=== PATIENT | female | born 1960 | race Caucasian/White ===

== ENCOUNTER 2016-06-24 12:08 | Emergency (ER) | payer OTHER ==
[~2016-06-24] VITALS: Ht 157.5 cm; Wt 51.5 kg
[2016-06-24 12:10] VITALS: TEMP 36.4; Ht 157.5 cm; Wt 51.5 kg
[2016-06-24] MEDS ORDERED: ONDA8TAB62 SL (12:42)
[2016-06-24] MEDS ORDERED: ACET-1256 PO (12:43)
[2016-06-24] MEDS ORDERED: SODIUM CHLORIDE 0.9% 1000ML 1,000 ML IV STA (13:29)
--- NOTE | 2016-06-24 13:29 | EMERGENCY ROOM VISIT NOTE ---
History Report prepared by Christophe: Jax De Jesus Under the Supervision of: Dr. Sameer Her M.D. First contact with patient: 13:21 Chief Complaint: VOMITING Stated Complaint: VOMITING, ABD PAIN Nursing Triage Summary: had been having diarrhea several days with abd pain. History of Present Illness The patient is a 55 year old female who presents to the Emergency Room with complaints of episodes of vomiting that stared a week ago. She also complains of intermittent cramping abdominal pain that initially started around her belly button and has progressively moved downwards. She denies any vomiting, chest pain, shortness of breath, urinary symptoms, or swelling to her legs. The patient currently feels okay. She went to her doctor 2 days ago. She has no history of diverticulitis or IBS. Source of History: patient Onset: A week ago Position: other (global - vomiting) Timing: other (episodes) Associated Symptoms: + abdominal pain, No SOB, No chest pain, No urinary symptoms Note: Associated symptoms: Denies swelling to legs. Review of Systems See HPI for pertinent positives & negatives. A total of 10 systems reviewed and were otherwise negative. Family History No pertinent family history Social History Smoking Status: Current Every Day Smoker Marital Status: Housing Status: lives with family Occupation Status: unemployed Current/Historical Medications Scheduled Ciprofloxacin Hcl (Cipro), 500 MG PO BID Metronidazole (Flagyl), 500 MG PO TID Scheduled PRN Acetaminophen (Tylenol), 1,000 MG PO Q4 PRN for Headache or Pain Ondansetron Odt (Zofran Odt), 8 MG SL Q4 PRN for Nausea Oxycodone Ir (Roxicodone Ir), 1-2 TAB PO Q4H PRN for Pain Promethazine Hcl (Phenergan), 25 MG PO Q4H PRN for Nausea Allergies Coded Allergies: [place] (Unverified Allergy, Intermediate, HIVES, 06/24/16) [place] Flavor (Unverified Allergy, Intermediate, HIVES, 06/24/16) Physical Exam Vital Signs Date Time Temp Pulse Resp B/P Pulse Ox O2 Delivery O2 Flow Rate FiO2 06/24/16 16:15 58 16 132/61 96 06/24/16 15:45 65 18 95 06/24/16 13:53 58 18 118/64 98 Room Air 06/24/16 12:10 36.4 74 20 124/72 97 Room Air Physical Exam GENERAL: Patient is uncomfortable appearing and in mild distress. HEENT: No acute trauma, normocephalic atraumatic, mucous membranes dry, no nasal congestion, no scleral icterus. NECK: No stridor, no adenopathy, no meningismus, trachea is midline. LUNGS: No dyspnea. Clear to auscultation and equal bilaterally. No wheeze, no rhonchi. HEART: Regular rate and rhythm. No murmurs, rubs, gallops appreciated. ABDOMEN: Soft, bowel sounds positive, no masses appreciated, no peritonitis. Bilateral lower abdominal mild tenderness. BACK: No midline tenderness, no CVA tenderness EXTREMITIES: Normal motion all extremities, no cyanosis, no edema. NEUROLOGIC: Alert and oriented, no acute motor or sensory deficits, no focal weakness, cranial nerves grossly intact. SKIN: No rash, no jaundice, no diaphoresis. Medical Decision & Procedures ER Provider Diagnostic Interpretation: CT results are stated below per my interpretation and the radiologist's interpretation. ABDOMEN AND PELVIS CT WITH IV CONTRAST CT DOSE: 248.89 mGy.cm HISTORY: Pain lower abdominal pain x 1 wk, diarrhea, elevated wbc TECHNIQUE: Multiaxial CT images of the abdomen and pelvis were performed following the use of intravenous contrast. COMPARISON STUDY: None. FINDINGS: Lung bases are clear. Liver spleen pancreas are unremarkable. Kidneys demonstrate several small sub-5 mm cyst. There is no evidence for renal hydronephrosis. Bowel pattern suggests mild nonobstructive ileus. The appendix is normal. Colon is remarkable for what appears be a slight degree of generalized wall edema as well as a trace amount of pericolonic infiltrative change. This appearance consistent with that of a nonspecific colitis. There is no evidence for abscess collection or obstruction. There is no significant free fluid within the pelvic cul-de-sac. Uterus is anteflexed. IMPRESSION: 1. Mild nonspecific colitis. 2. No evidence for abscess collection or obstruction. 3. Normal appendix. 4. Mild nonobstructive reactive small bowel ileus. Electronically signed by: Jamal Garcia M.D. 06/24/2016 2:58 PM Dictated Date/Time: 06/24/2016 2:53 PM Laboratory Results 06/24/16 13:45 Red Blood Count 5.17, Mean Corpuscular Volume 81.6, Mean Corpuscular Hemoglobin 26.5, Mean Corpuscular Hemoglobin Concent 32.5, Mean Platelet Volume 10.9, Neutrophils (%) (Auto) 77.4, Lymphocytes (%) (Auto) 14.2, Monocytes (%) (Auto) 5.6, Eosinophils (%) (Auto) 2.2, Basophils (%) (Auto) 0.4, Neutrophils # (Auto) 12.85, Lymphocytes # (Auto) 2.35, Monocytes # (Auto) 0.93, Eosinophils # (Auto) 0.36, Basophils # (Auto) 0.07 06/24/16 13:45 Test 06/24/16 13:45 06/24/16 13:50 White Blood Count 16.60 K/uL (4.8-10.8) Red Blood Count 5.17 M/uL (4.2-5.4) Hemoglobin 13.7 g/dL (12.0-16.0) Hematocrit 42.2 % (37-47) Mean Corpuscular Volume 81.6 fL (80-100) Mean Corpuscular Hemoglobin 26.5 pg (25-34) Mean Corpuscular Hemoglobin Concent 32.5 g/dl (32-36) Platelet Count 260 K/uL (130-400) Mean Platelet Volume 10.9 fL (7.4-10.4) Neutrophils (%) (Auto) 77.4 % Lymphocytes (%) (Auto) 14.2 % Monocytes (%) (Auto) 5.6 % Eosinophils (%) (Auto) 2.2 % Basophils (%) (Auto) 0.4 % Neutrophils # (Auto) 12.85 K/uL (1.4-6.5) Lymphocytes # (Auto) 2.35 K/uL (1.2-3.4) Monocytes # (Auto) 0.93 K/uL (0.11-0.59) Eosinophils # (Auto) 0.36 K/uL (0-0.5) Basophils # (Auto) 0.07 K/uL (0-0.2) RDW Standard Deviation 48.2 fL (36.4-46.3) RDW Coefficient of Variation 16.2 % (11.5-14.5) Immature Granulocyte % (Auto) 0.2 % Immature Granulocyte # (Auto) 0.04 K/uL (0.00-0.02) Anion Gap 13.0 mmol/L (3-11) Est Creatinine Clear Calc Drug Dose 50.9 ml/min Estimated GFR () 74.0 Estimated GFR (Non- 63.8 BUN/Creatinine Ratio 13.2 (10-20) Calcium Level 9.4 mg/dl (8.5-10.1) Total Bilirubin 0.4 mg/dl (0.2-1) Aspartate Amino Transf (AST/SGOT) 15 U/L (15-37) Alanine Aminotransferase (ALT/SGPT) 14 U/L (12-78) Alkaline Phosphatase 59 U/L (45-117) Total Protein 7.7 gm/dl (6.4-8.2) Albumin 4.0 gm/dl (3.4-5.0) Globulin 3.7 gm/dl (2.5-4.0) Albumin/Globulin Ratio 1.1 (0.9-2) Lipase 123 U/L (73-393) Urine Color YELLOW Urine Appearance CLEAR (CLEAR) Urine pH 5.5 (4.5-7.5) Urine Specific [place] 1.014 (1.000-1.030) Urine Protein NEG (NEG) Urine Glucose (UA) NEG (NEG) Urine Ketones NEG (NEG) Urine Occult Blood NEG (NEG) Urine Nitrite NEG (NEG) Urine Bilirubin NEG (NEG) Urine Urobilinogen NEG (NEG) Urine Leukocyte Esterase NEG (NEG) Laboratory results as reviewed by me. Medications Administered Medications (Trade) Dose Ordered Sig/Irish Route Start Time Stop Time Status Last Admin Dose Admin Sodium Chloride (Nss 1000ml) 1,000 ml @ 999 mls/hr Q1H1M STAT IV 06/24/16 13:29 06/24/16 14:29 DC 06/24/16 13:29 999 MLS/HR Ciprofloxacin (Cipro Tab) 500 mg NOW STAT PO 06/24/16 15:28 06/24/16 15:30 DC 06/24/16 15:28 500 MG Metronidazole (Flagyl Tab) 500 mg NOW STAT PO 06/24/16 15:28 06/24/16 15:30 DC 06/24/16 15:28 500 MG ED Course 1325: The patient was evaluated in room B8. A complete history and physical exam was performed. 1329: Ordered NSS 1000 ml @ 999 mls/hr IV. 1405: I reevaluated the patient and she feels okay and agrees to a CT scan. 1516: I discussed the patient with Dr. Sterling William gastroenterology. 1527: I reevaluated the patient and she feels good and would like to try antibiotics. The patient verbally expressed understanding and agreement of the treatment plan. The patient will be discharged. 1528: Ordered Flagyl Tab 500 mg PO, Cipro Tab 500 mg PO. Medical Decision Differential: Appendicitis, Diverticulitis, PUD/Gastritis, Biliary Pathology, UTI, Pyelonephritis, Renal Colic, Bowel Obstruction, amongst other pathologies entertained.. 55 yr old female arrives with complaint of nause,a ovmiting and diarrhe for the last week and developing lower abdominal pains which come and go. Quite comfortable here and in no distress. Mildly dehydrated consistent with several pound weight loss over this week. With elevated WBC and prolonged symptoms seems prudent to do CT. Revealed Colitis with some ileus. Discussed pros/cons of abx. She denies any recent abx. She wishes to start abx given prolonged symptoms and I feel this is reasonable. She will follow up with PCP tomorrow. Discussed symptoms requiring immediate RTED. Stressed GI follow up as well. Consults Time Called: 1514 Consulting Physician: Dr. Sterling William gastroenterology Returned Call: 1516 I discussed the patient with Dr. Sterling William gastroenterology. Impression Primary Impression: Colitis Scribe Attestation The scribe's documentation has been prepared under my direction and personally reviewed by me in its entirety. I confirm that the note above accurately reflects all work, treatment, procedures, and medical decision making performed by me. Departure Information Dispostion Home / Self-Care Prescriptions Ciprofloxacin Hcl (CIPRO) 500 Mg Tab 500 MG PO BID, #20 TAB Prov: Sameer Her M.D. 06/24/16 Metronidazole (Flagyl) 500 Mg Tab 500 MG PO TID, #30 TAB Prov: Sameer Her M.D. 06/24/16 Promethazine Hcl (Phenergan) 25 Mg Tab 25 MG PO Q4H Y for Nausea, #20 TAB Prov: Sameer Her M.D. 06/24/16 Oxycodone Ir (Roxicodone Ir) 5 Mg Tab 1-2 TAB PO Q4H Y for Pain, #12 TAB Prov: Sameer Her M.D. 06/24/16 Referrals Jamal Terrell M.D. (PCP) Patient Instructions My [facility] Additional Instructions You were found to have inflammation of your large bowel known as colitis. In rare cases this could be due to a serious bacterial infection that may worsen, thus return immediately if fevers, increased vomiting, increased pain, blood in stool or other concerns. Call your PCP tomorrow to set up follow up. You have received a narcotic pain medication prescription. These medications may cause drowsiness and should not be used with other sedative medications. Do not drive, drink alcohol, perform dangerous activities, nor make important decisions after taking these medications. [facility] use or inappropriate use may lead to addiction.
[2016-06-24 13:56] LABS: BASO % 0.4 %; BASO ABS # 0.07 K/uL (0-0.2); COMPLETE YES; EOS % 2.2 %; HEMATOCRIT 42.2 % (37-47); IG% 0.2 %; LYMPH % 14.2 %; LYMPH ABS # 2.35 K/uL (1.2-3.4); MEAN CELL VOLUME 81.6 fL (80-100); MEAN CORPUSCULAR HEMOGLOBIN 26.5 pg (25-34); MEAN CORPUSCULAR HGB CONC 32.5 g/dl (32-36); MEAN PLATELET VOLUME 10.9 fL (7.4-10.4); MONO % 5.6 %; NEUT % 77.4 %; PLATELET COUNT 260 K/uL (130-400); RED BLOOD COUNT 5.17 M/uL (4.2-5.4)
[2016-06-24 14:08] LABS: URINE APPEARANCE CLEAR (CLEAR); URINE BILIRUBIN NEG (NEG); URINE COLOR YELLOW; URINE NITRITE NEG (NEG); URINE PH 5.5 (4.5-7.5); URINE SPECIFIC GRAVITY 1.014 (1.000-1.030); UROBILINOGEN NEG (NEG); ZZUR CULT IF INDIC CLEAN CATCH NO
[2016-06-24 14:11] LABS: MANUAL MICROSCOPIC REQUIRED? NO; REVIEW REQ? NO
[2016-06-24 14:12] LABS: BUN/CREATININE RATIO 13.2 (10-20); CALCIUM 9.4 mg/dl (8.5-10.1); POTASSIUM 4.1 mmol/L (3.5-5.1)
[2016-06-24 14:15] LABS: ALB/GLOB RATIO 1.1 (0.9-2)
[2016-06-24] MEDS ORDERED: OPTIRAY 320 IV PRN (14:15)
--- NOTE | 2016-06-24 15:00 | DIAGNOSTIC IMAGING REPORT ---
ABDOMEN AND PELVIS CT WITH IV CONTRAST CT DOSE: 248.89 mGy.cm HISTORY: Pain lower abdominal pain x 1 wk, diarrhea, elevated wbc TECHNIQUE: Multiaxial CT images of the abdomen and pelvis were performed following the use of intravenous contrast. COMPARISON STUDY: None. FINDINGS: Lung bases are clear. Liver spleen pancreas are unremarkable. Kidneys demonstrate several small sub-5 mm cyst. There is no evidence for renal hydronephrosis. Bowel pattern suggests mild nonobstructive ileus. The appendix is normal. Colon is remarkable for what appears be a slight degree of generalized wall edema as well as a trace amount of pericolonic infiltrative change. This appearance consistent with that of a nonspecific colitis. There is no evidence for abscess collection or obstruction. There is no significant free fluid within the pelvic cul-de-sac. Uterus is anteflexed. IMPRESSION: 1. Mild nonspecific colitis. 2. No evidence for abscess collection or obstruction. 3. Normal appendix. 4. Mild nonobstructive reactive small bowel ileus. Electronically signed by: Jamal Garcia M.D. 06/24/2016 2:58 PM Dictated Date/Time: 06/24/2016 2:53 PM
[2016-06-24] MEDS ORDERED: CIPROFLOXACIN 500 MG TAB PO STA (15:28)
[2016-06-24] MEDS ORDERED: METRONIDAZOLE 250 MG TAB PO STA (15:28)
[2016-06-24] MEDS ORDERED: CIPR-255 PO (15:31)
[2016-06-24] MEDS ORDERED: OXYC1TAB3 PO (15:31)
[2016-06-24] MEDS ORDERED: METR-163 PO (15:31)
[2016-06-24] MEDS ORDERED: PROM25TA9 PO (15:31)
[2016-06-24 16:15] VITALS: BP 132/61; PULSE 58; O2SAT 96
== END 2016-06-24 16:00 | disposition home or self-care (01) ==
LOC: C.EDB 12:08
DX: K52.9 Noninfective gastroenteritis and colitis, unspecified (principal); F17.200 Nicotine dependence, unspecified, uncomplicated

== ENCOUNTER 2016-10-04 21:09 | Inpatient (IN) | payer OTHER ==
[~2016-10-04] VITALS: Ht 160 cm; Wt 55.4 kg
[~2016-10-04 21:09] MED LIST: ACET-1256 PO; CIPR-255 PO; METR-163 PO; ONDA8TAB62 SL; OXYC1TAB3 PO; PROM25TA9 PO
[2016-10-04 21:30] LABS: MEAN CELL VOLUME 87.1 fL (80-100); MEAN CORPUSCULAR HEMOGLOBIN 28.1 pg (25-34); MEAN CORPUSCULAR HGB CONC 32.3 g/dl (32-36); PLATELET COUNT 298 K/uL (130-400); RED BLOOD COUNT 5.05 M/uL (4.2-5.4); WHITE BLOOD COUNT 15.46 K/uL (4.8-10.8)
[2016-10-04] MEDS ORDERED: DiphenhydrAMINE HCL 50 MG/ML VIAL IV STA (21:46)
[2016-10-04] MEDS: PROCHLORPERAZINE 5 MG/ML 2 ML VIAL IV STA ×2 (21:46→22:02)
[2016-10-04] MEDS ORDERED: HYDROmorphone INJ 1 MG/ML SYR IV STA (21:46)
[2016-10-04] MEDS ORDERED: BNT10 PO (21:47)
[2016-10-04 21:51] LABS: CREATININE 0.99 mg/dl (0.60-1.20); POTASSIUM 3.5 mmol/L (3.5-5.1)
[2016-10-04] MEDS ORDERED: SODIUM CHLORIDE 0.9% 1000ML 1,000 ML IV ONE (22:00)
[2016-10-04 22:02] LABS: CALCIUM 9.1 mg/dl (8.5-10.1)
[2016-10-04 22:11] LABS: BASO % 1.5 %; BASO ABS # 0.23 K/uL (0-0.2); COMPLETE YES; EOS % 1.6 %; IG% 0.3 %; LYMPH % 33.8 %; LYMPH ABS # 5.23 K/uL (1.2-3.4); NEUT % 55.8 %
[2016-10-04] MEDS ORDERED: OPTIRAY 320 IV PRN (22:15)
--- NOTE | 2016-10-04 22:25 | DIAGNOSTIC IMAGING REPORT ---
ABDOMEN AND PELVIS CT WITH IV CONTRAST CT DOSE: 243.48 mGy.cm HISTORY: Generalized abdominal pain. Vomiting. TECHNIQUE: Multiaxial CT images of the abdomen and pelvis were performed following the use of intravenous contrast. COMPARISON STUDY: Abdomen and pelvis CT 06/24/2016. FINDINGS: The lung bases are clear. No pneumoperitoneum. No pneumatosis. The liver, gallbladder, spleen, adrenal glands, and pancreas are unremarkable. No retroperitoneal lymphadenopathy. A few subcentimeter hypodense lesions within the left kidney measuring up to 7 mm. These are too small to characterize. Normal right kidney. No hydronephrosis. The bladder, uterus, bilateral adnexa are unremarkable. Trace ascites. Mildly distended and fluid-filled loops of small bowel within the deep pelvis. These measure up to 2.8 cm in diameter. High-grade transition point within the deep pelvis best seen on image 273. There is twisting of the mesentery at this location. Therefore this raises the possibility of an internal hernia with a closed loop obstruction. Normal appendix. IMPRESSION: Mildly distended fluid-filled loops of small bowel within the deep pelvis consistent with a small bowel obstruction. There is a high-grade transition point within the deep pelvis with twisting of the mesentery at this location. Therefore, this raises the possibility of an internal hernia with a closed loop obstruction. Surgical consultation is recommended. Electronically signed by: Jose Manuel Landon M.D. 10/04/2016 10:24 PM Dictated Date/Time: 10/04/2016 10:16 PM
[2016-10-04] MEDS ORDERED: HYDROmorphone INJ 0.5 MG/0.5 ML SYR IV STA (23:08)
--- NOTE | 2016-10-04 23:21 | EMERGENCY ROOM VISIT NOTE ---
History First contact with patient: 21:41 Chief Complaint: ABDOMINAL PAIN Stated Complaint: AB PAIN Nursing Triage Summary: [facility] with c[facility]o mid abdominal pain [facility] History of Colitis. Pain 10/10 received 100 mcg Fentanyl and 4 mg Zofran enroute with EMS History of Present Illness The patient is a 56 year old female who presents to the Emergency Room with complaints of severe abdominal pain that began over the past 8 or 9 hours. The patient states that she had a hot dog and the hands and which around lunchtime, and shortly thereafter began having some mild abdominal discomfort. Her pain has worsened over the past several hours, and she now rates it a sharp stabbing 02/12. The patient has a history of colitis and does arrive via ambulance. She has been provided 100 g fentanyl and 4 mg Zofran. She continues to be in exquisite pain. She is nauseated with vomiting. She does not report diarrhea or constipation. No chest pain, chest tightness, or shortness of breath. She does not report previous abdominal surgery. She has not had fever or chills. Review of Systems More than 10 systems were reviewed and otherwise negative with the exception of history of present illness. Past Medical/Surgical History History of colitis Family History No pertinent family history Social History Smoking Status: Current Every Day Smoker Marital Status: Housing Status: lives with family Occupation Status: unemployed Current/Historical Medications Scheduled Dicyclomine HCl (Dicyclomine HCl), 10 MG PO QID Allergies Coded Allergies: [place] (Unverified Allergy, Intermediate, HIVES, 10/04/16) [place] Flavor (Unverified Allergy, Intermediate, HIVES, 10/04/16) Alcohol (Unverified Allergy, Unknown, UNKNOWN, 10/04/16) Latex (Unverified Allergy, Unknown, UNKNOWN, 10/04/16) Physical Exam Vital Signs Date Time Temp Pulse Resp B/P (MAP) Pulse Ox O2 Delivery O2 Flow Rate FiO2 10/05/16 00:10 64 18 151/64 100 10/04/16 23:14 58 16 146/70 96 Room Air 10/04/16 22:02 49 16 127/58 99 Nasal Cannula 3.0 10/04/16 21:16 36.6 55 24 135/63 94 Room Air Physical Exam VITALS: Vitals are noted on the nurse's note and reviewed by myself. Vital signs stable. GENERAL: Well-developed, well-nourished, white female who appears in moderate to severe discomfort secondary to her stated complaint. She is splinting her abdomen with her right hand and rocking back and forth in her emergency department bed. The patient is tearful but otherwise cooperative with the examination. HEAD: Normocephalic atraumatic. HEART: Regular rate and rhythm without murmurs gallops or rubs. LUNGS: Clear to auscultation bilaterally without wheezes, rales or rhonchi. No retractions or accessory muscle use. ABDOMEN: Positive normal bowel sounds x 4. Soft with generalized tenderness on examination. No distinct point tenderness. The patient does mildly guard over the left side abdomen. No CVA tenderness. MUSCULOSKELETAL: No muscle atrophy, erythema, or edema noted. Full range of motion without joint tenderness in all extremities Medical Decision & Procedures ER Provider Diagnostic Interpretation: ABDOMEN AND PELVIS CT WITH IV CONTRAST CT DOSE: 243.48 mGy.cm HISTORY: Generalized abdominal pain. Vomiting. TECHNIQUE: Multiaxial CT images of the abdomen and pelvis were performed following the use of intravenous contrast. COMPARISON STUDY: Abdomen and pelvis CT 06/24/2016. FINDINGS: The lung bases are clear. No pneumoperitoneum. No pneumatosis. The liver, gallbladder, spleen, adrenal glands, and pancreas are unremarkable. No retroperitoneal lymphadenopathy. A few subcentimeter hypodense lesions within the left kidney measuring up to 7 mm. These are too small to characterize. Normal right kidney. No hydronephrosis. The bladder, uterus, bilateral adnexa are unremarkable. Trace ascites. Mildly distended and fluid-filled loops of small bowel within the deep pelvis. These measure up to 2.8 cm in diameter. High-grade transition point within the deep pelvis best seen on image 273. There is twisting of the mesentery at this location. Therefore this raises the possibility of an internal hernia with a closed loop obstruction. Normal appendix. IMPRESSION: Mildly distended fluid-filled loops of small bowel within the deep pelvis consistent with a small bowel obstruction. There is a high-grade transition point within the deep pelvis with twisting of the mesentery at this location. Therefore, this raises the possibility of an internal hernia with a closed loop obstruction. Surgical consultation is recommended. Laboratory Results 10/04/16 20:45 Red Blood Count 5.05, Mean Corpuscular Volume 87.1, Mean Corpuscular Hemoglobin 28.1, Mean Corpuscular Hemoglobin Concent 32.3, Mean Platelet Volume 12.0, Neutrophils (%) (Auto) 55.8, Lymphocytes (%) (Auto) 33.8, Monocytes (%) (Auto) 7.0, Eosinophils (%) (Auto) 1.6, Basophils (%) (Auto) 1.5, Neutrophils # (Auto) 8.62, Lymphocytes # (Auto) 5.23, Monocytes # (Auto) 1.08, Eosinophils # (Auto) 0.25, Basophils # (Auto) 0.23 10/04/16 20:45 Test 10/04/16 20:45 10/04/16 23:05 White Blood Count 15.46 K/uL (4.8-10.8) Red Blood Count 5.05 M/uL (4.2-5.4) Hemoglobin 14.2 g/dL (12.0-16.0) Hematocrit 44.0 % (37-47) Mean Corpuscular Volume 87.1 fL (80-100) Mean Corpuscular Hemoglobin 28.1 pg (25-34) Mean Corpuscular Hemoglobin Concent 32.3 g/dl (32-36) Platelet Count 298 K/uL (130-400) Mean Platelet Volume 12.0 fL (7.4-10.4) Neutrophils (%) (Auto) 55.8 % Lymphocytes (%) (Auto) 33.8 % Monocytes (%) (Auto) 7.0 % Eosinophils (%) (Auto) 1.6 % Basophils (%) (Auto) 1.5 % Neutrophils # (Auto) 8.62 K/uL (1.4-6.5) Lymphocytes # (Auto) 5.23 K/uL (1.2-3.4) Monocytes # (Auto) 1.08 K/uL (0.11-0.59) Eosinophils # (Auto) 0.25 K/uL (0-0.5) Basophils # (Auto) 0.23 K/uL (0-0.2) RDW Standard Deviation 50.6 fL (36.4-46.3) RDW Coefficient of Variation 15.9 % (11.5-14.5) Immature Granulocyte % (Auto) 0.3 % Immature Granulocyte # (Auto) 0.05 K/uL (0.00-0.02) Erythrocyte Sedimentation Rate 10 mm/hr (0-21) Anion Gap 7.0 mmol/L (3-11) Est Creatinine Clear Calc Drug Dose 52.9 ml/min Estimated GFR () 74.4 Estimated GFR (Non- 64.2 BUN/Creatinine Ratio 16.0 (10-20) Calcium Level 9.1 mg/dl (8.5-10.1) Total Bilirubin 0.3 mg/dl (0.2-1) Aspartate Amino Transf (AST/SGOT) 24 U/L (15-37) Alanine Aminotransferase (ALT/SGPT) 25 U/L (12-78) Alkaline Phosphatase 70 U/L (45-117) C-Reactive Protein < 0.29 mg/dl (0-0.29) Total Protein 7.2 gm/dl (6.4-8.2) Albumin 3.6 gm/dl (3.4-5.0) Globulin 3.6 gm/dl (2.5-4.0) Albumin/Globulin Ratio 1.0 (0.9-2) Lipase 164 U/L (73-393) Urine Color YELLOW Urine Appearance CLEAR (CLEAR) Urine pH 7.0 (4.5-7.5) Urine Specific [place] > 1.045 (1.000-1.030) Urine Protein NEG (NEG) Urine Glucose (UA) NEG (NEG) Urine Ketones NEG (NEG) Urine Occult Blood NEG (NEG) Urine Nitrite NEG (NEG) Urine Bilirubin NEG (NEG) Urine Urobilinogen NEG (NEG) Urine Leukocyte Esterase NEG (NEG) Urine Opiates Screen POS (NEG) Urine Methadone, Qualitative NEG (NEG) Urine Barbiturates NEG (NEG) Urine Phencyclidine (PCP) Level NEG (NEG) Ur Amphetamine/Methamphetamine NEG (NEG) MDMA (Ecstasy) Screen NEG (NEG) Urine Benzodiazepines Screen NEG (NEG) Urine Cocaine Metabolite NEG (NEG) Urine Marijuana (THC) NEG (NEG) Medications Administered Medications (Trade) Dose Ordered Sig/Irish Route Start Time Stop Time Status Last Admin Dose Admin Hydromorphone HCl (Dilaudid Inj) 1 mg NOW STAT IV 10/04/16 21:46 10/04/16 21:49 DC 10/04/16 21:57 1 MG Sodium Chloride 1,000 ml @ 999 mls/hr Q1H1M ONCE IV 10/04/16 22:00 10/04/16 23:00 DC 10/04/16 22:03 999 MLS/HR Hydromorphone HCl (Dilaudid Inj) 0.5 mg NOW STAT IV 10/04/16 23:08 10/04/16 23:09 DC 10/04/16 23:12 0.5 MG Cefazolin Sodium 2000 mg/Dextrose 60 ml @ 120 mls/hr NOW STAT IV 10/04/16 23:49 10/05/16 00:18 DC 10/05/16 00:05 120 MLS/HR Hydromorphone HCl (Dilaudid Inj) 0.5 mg NOW STAT IV 10/05/16 00:17 10/05/16 00:18 DC 10/05/16 00:23 0.5 MG ED Course Physical exam and history were performed. Nursing notes and EMR were reviewed. Patient appears to have abdominal pain that has slowly worsened and is now very severe. The patient has a history of colitis, and states her pain is not similar to her normal colitis episodes. IV access was established and labs were obtained. The patient was given 1 mg IV Dilaudid for comfort. She was hydrated with normal saline. Because of her nausea I did place orders for IV Benadryl and IV Compazine, however the patient did have some sedation with the IV Dilaudid and this was held by nursing. CT scan of the abdomen and pelvis was performed with IV contrast only. The patient's blood work is as above and was reviewed. She does have an elevated white blood cell count of 15,000. She does not have a significant anemia, bandemia, or gross electrolyte imbalance. Lipase and transaminases are nondiagnostic. Sedimentation rate and CRP are normal. The patient CT scan is as above and is highly concerning for a small bowel obstruction with possible high-grade lesion possibly from internal hernia. NG tube was placed. The case with the on-call surgeon, Dr. Yang, who agreed to evaluate the patient here in the emergency department. Please see Dr Yang 's dicatation for further patient course, plan, and disposition. The chart was completed utilizing [employer] Voice Recognition Software. Grammatical errors, random word insertions, pronoun errors, and incomplete sentences are an occasional consequence of this system due to software limitations, ambient noise, and hardware issues. Any formal questions or concerns about the content, text, or information contained within the body of this dictation should be directly addressed to the provider for clarification. . Medical Decision Differential diagnosis: Etiologies such as appendicitis, diverticulitis, PUD, biliary pathology, UTI, pancreatitis, obstruction, mesenteric ischemia, aortic pathology, infections, inflammatory bowel disease, renal colic, as well as others were entertained. Impression Primary Impression: Small bowel obstruction Departure Information Referrals Jamal Terrell M.D. (PCP) Patient Instructions [facility]
[2016-10-04 23:26] LABS: URINE APPEARANCE CLEAR (CLEAR); URINE BILIRUBIN NEG (NEG); URINE COLOR YELLOW; URINE NITRITE NEG (NEG); URINE SPECIFIC GRAVITY > 1.045 (1.000-1.030); UROBILINOGEN NEG (NEG); ZZUR CULT IF INDIC CLEAN CATCH NO
[2016-10-04 23:27] LABS: MANUAL MICROSCOPIC REQUIRED? NO; REVIEW REQ? NO
[2016-10-04] MEDS ORDERED: NURSING VERBAL MED ORDER ONE (23:45)
[2016-10-04 23:46] LABS: BENZODIAZEPINE, URINE NEG (NEG); COCAINE,URINE NEG (NEG); PHENCYCLIDINE, URINE NEG (NEG)
[2016-10-04] MEDS ORDERED: CEFAZOLIN SOD 2000 MG in DEXTROSE 5% 50ML IV STA (23:49)
--- NOTE | 2016-10-04 23:55 | History and Physical ---
History & Physical Date Oct 04, 2016. Chief Complaint abdominal pain History of Present Illness The patient is a 56 year old female with complaints of lower abdominal pain as well as n/v which started this evening after eating a ham sandwhich at the [employer]. has a history of recent admission for "colitis" though her only med is dycyclomine..she was supposed to have a colonoscopy 1 month ago but did not under go it. has lost about 15 lbs over several months which she attributes to the colitis. no change in eating or bowel movements. no other complaints. Additional History Hepatic Disease: No Endocrine Disorder: No Kidney Disease: No Hypertension: No Heart Disease: No Bleeding Tendencies: No Infectious Diseases: No Allergies Coded Allergies: Harvel (Unverified Allergy, Intermediate, HIVES, 10/04/16) Harvel Flavor (Unverified Allergy, Intermediate, HIVES, 10/04/16) Alcohol (Unverified Allergy, Unknown, UNKNOWN, 10/04/16) Latex (Unverified Allergy, Unknown, UNKNOWN, 10/04/16) Home Medications Scheduled Dicyclomine HCl (Dicyclomine HCl), 10 MG PO QID Physical Examination Skin: warm/dry Eyes: EOMI Head: normocephalic, atraumatic Neck: supple, trachea midline Respiratory/Chest: no respiratory distress Cardiovascular: regular rate, rhythm Abdomen / GI: + pertinent finding (abdomen diffusely ttp. +distended. pain out of proportion to exam. ) Neurologic/Psych: alert, oriented x 3, + pertinent finding (mildly somnolent secondary to pain meds. family at bedside. ) Diagnosis SBO with high grade transition point. clinically has s/s of bowel ischemia. discussed options /risks. will proceed urgently to OR for ex-lap, GUTIERREZ discussed risks of bleeding/infection/dvt/pe/mi/injury to an organ etc... answered questions. ok to proceed.
[2016-10-05] VITALS (11 sets, daily range): BP systolic 110–139; BP diastolic 67–90; PULSE 58–79; TEMP 36.3–36.8; O2SAT 92–97; Ht 160 cm; Wt 55.4 kg
[2016-10-05] MEDS ORDERED: HYDROmorphone INJ 0.5 MG/0.5 ML SYR IV STA (00:17)
[2016-10-05] MEDS ORDERED: KETAMINE HCL INJ 50 MG/ML 10 ML VIAL ONE (00:24)
[2016-10-05] MEDS ORDERED: MIDAZOLAM HCL 1 MG/ML 2ML VIAL ONE (00:24)
[2016-10-05] MEDS ORDERED: FENTANYL CITRATE INJ 50 MCG/1 ML 2 ML VIAL ONE ×2 (00:24→01:14)
[2016-10-05] MEDS ORDERED: SODIUM CHLORIDE 0.9% INJ 10 ML VIAL ONE (00:24)
[2016-10-05] MEDS ORDERED: SUCCINYLCHOLINE CHLORIDE 20 MG/ML 10 ML VIAL IV ONE (00:24)
[2016-10-05] MEDS ORDERED: LIDOCAINE HCL 2% 2 ML VIAL (20MG/ML) ONE (00:24)
[2016-10-05] MEDS ORDERED: PROPOFOL IV EMULSION 10 MG/ML 20 ML VIAL IV ONE (00:24)
[2016-10-05] MEDS ORDERED: ROCURONIUM BROMIDE 10 MG/ML 5 ML VIAL ONE (00:24)
[2016-10-05] MEDS ORDERED: DEXAMETHASONE SOD INJ 4 MG/ML VIAL ONE (00:29)
[2016-10-05] MEDS ORDERED: ONDANSETRON INJ 2 MG/ML 2 ML VIAL ONE (01:32)
[2016-10-05] MEDS ORDERED: GLYCOPYRROLATE INJ 0.2 MG/ML VIAL ONE (01:35)
[2016-10-05] MEDS ORDERED: NEOSTIGMINE METHYLSULFATE 5 MG/5 ML SYR ONE (01:35)
[2016-10-05] MEDS ORDERED: DiphenhydrAMINE HCL 50 MG/ML VIAL IV PRN (02:00)
[2016-10-05] MEDS ORDERED: ACETAMINOPHEN IV 1,000 MG in EMPTY BAG 0 ML IV PRN (02:00)
--- NOTE | 2016-10-05 02:00 | [facility] Operative Report ---
Operative Report Operative Date Oct 05, 2016. Pre-Operative Diagnosis SBO/ischemia Post-Operative Diagnosis same secondary to adhesive band Procedure(s) Performed ex-lap, release of small bowel obstruction; enterolysis;partial small bowel resection Surgeon alex Findings SBO secondary to adhesive band; ischemic/infarcted portion of small bowel approx 12 inches. Specimens portion of small bowel Anesthesia get Complication(s) None Disposition Recovery Room / PACU I attest to the content of the Intraoperative Record and any orders documented therein. Any exceptions are noted below.
[2016-10-05] MEDS ORDERED: LACTATED RINGER'S 1000ML 1,000 ML IV PRN (02:12)
[2016-10-05] MEDS ORDERED: FLUMAZENIL 0.1 MG/1 ML 10 ML VIAL IV ONE (02:14)
[2016-10-05] MEDS ORDERED: FENTANYL CITRATE INJ 50 MCG/1 ML 2 ML VIAL IV PRN (02:15)
[2016-10-05] MEDS ORDERED: ONDANSETRON INJ 2 MG/ML 2 ML VIAL IV PRN (02:15)
[2016-10-05] MEDS: SODIUM CHLORIDE 0.9% 1000ML 1,000 ML IV SCH ×3 (04:42→19:26)
[2016-10-05] MEDS: MoRPHine SULFATE 2 MG/ML CARP IV PRN ×4 (05:46→19:29)
--- NOTE | 2016-10-05 06:46 | OPERATIVE REPORT ---
DATE OF OPERATION: 10/05/2016 PREOPERATIVE DIAGNOSIS: Small-bowel obstruction with suspected small bowel ischemia. POSTOPERATIVE DIAGNOSES: Small-bowel obstruction secondary to an adhesive band, small bowel ischemia versus infarcted. PROCEDURE PERFORMED: Exploratory laparotomy, release of small-bowel obstruction, enterolysis and partial small-bowel resection with primary anastomosis. SURGEON: Dr. Yang. ESTIMATED BLOOD LOSS: Approximately 15 mL. COMPLICATIONS: No immediate. ANESTHESIA: General. CONDITION: The patient tolerated the procedure well. DESCRIPTION OF PROCEDURE: After informed consent was obtained, the patient taken to the operating suite, placed in the supine position. After successful intubation a Rosales catheter was placed and the abdomen was sterilely prepped and draped in usual fashion. An infraumbilical incision in the midline was made with a 10 blade scalpel and carried down through the soft tissue using electrocautery. Anterior rectus fascia was opened using electrocautery. Rectus muscles were split in the midline and the peritoneum elevated with hemostats and incised under direct vision with Metzenbaum scissors. I extended the incision to both poles with electrocautery. There was some free fluid in the abdomen. Immediately, we noted some ischemic versus infarcted appearing small bowel in the pelvis. There was dilated bowel followed by transition point with decompressed small bowel. There was 1 solitary very tight adhesive band. I was able to get my finger under it and using a Metzenbaum scissors, divide the band, which released the small-bowel obstruction. As we delivered the discolored bowel out of the abdomen, we suctioned out the fluid. There was no perforation noted. We did thoroughly irrigate the pelvis. As I examined the injured portion of small bowel, it was approximately 1 foot in length. There was some torn and engorged mesentery and the overall general health of the bowel was not good. Even if the bowel survived, I was still worried about some ischemic perforation. I therefore divided proximal and distal viable bowel from this area with a ALEXANDRA mario cartridge stapler. I then used a LigaSure device to take down the mesentery and passed off the small portion of small intestine. I then used the same ALEXANDRA with mario cartridges to perform a [id number] small bowel anastomosis. Another ALEXANDRA mario cartridge was used to close the common enterotomy. A 3-0 silk was used to oversew the staple line as well as place a crotch stitch. I used 0 Vicryl to close the mesenteric defect. This portion of the bowel was viable. The anastomosis was patent and there was no ischemia. We thoroughly irrigated the wound. There was adequate hemostasis at the end of the procedure. It was a relatively small incision. I did try and do my best to look around the entire abdomen, other than some redundant stool filled large bowel, I did not see any other gross abnormalities. We did perform a final irrigation. I then closed the fascia using #1 PDS starting either pole and running them and securing them together in the midline. Soft tissue was irrigated and closed with skin max. Silver dressing was applied. The patient was awakened, extubated, and transferred to recovery room in stable condition. I attest to the content of the Intraoperative Record and any orders documented therein. Any exception s are noted below.
[2016-10-05 07:19] LABS: PROTHROMBIN TIME (PATIENT) 10.2 SECONDS (9.0-12.0)
--- NOTE | 2016-10-05 08:15 | Surgery Progress Note ---
Surgery Progress Note Date of Service Oct 05, 2016. Subjective Post OP Day: 1 + complaints (NG), + pain controlled Objective Vital Signs: Date Time Temp Pulse Resp B/P (MAP) Pulse Ox O2 Delivery O2 Flow Rate FiO2 10/05/16 07:07 36.3 64 14 118/70 (86) 96 Nasal Cannula 2.0 10/05/16 06:50 36.5 64 14 120/74 (89) 97 Nasal Cannula 2.0 10/05/16 05:38 36.8 67 14 125/72 (89) 96 Nasal Cannula 2.0 10/05/16 04:45 36.6 79 16 128/76 (93) 95 Nasal Cannula 2.0 10/05/16 04:20 36.3 76 14 139/90 92 Nasal Cannula 2.0 10/05/16 04:15 36.4 61 14 114/72 (86) 95 Room Air 10/05/16 04:00 Nasal Cannula 2.0 10/05/16 03:45 36.3 76 16 139/90 (106) 93 Nasal Cannula 2.0 10/05/16 03:30 62 14 109/64 96 Nasal Cannula 2 10/05/16 03:20 64 14 108/69 95 Nasal Cannula 2 10/05/16 03:10 74 22 137/67 95 Nasal Cannula 2 10/05/16 03:00 76 17 142/73 95 Nasal Cannula 2 10/05/16 02:50 65 17 126/62 95 Nasal Cannula 2 10/05/16 02:40 65 17 146/73 94 Nasal Cannula 2 10/05/16 02:30 36.3 61 19 149/83 93 Nasal Cannula 2 10/05/16 02:20 64 16 161/82 93 Nasal Cannula 2 10/05/16 02:10 82 24 170/75 97 Mask 5 10/05/16 02:01 36.3 71 16 149/80 100 Mask 10 10/05/16 00:10 64 18 151/64 100 10/04/16 23:14 58 16 146/70 96 Room Air 10/04/16 22:02 49 16 127/58 99 Nasal Cannula 3.0 10/04/16 21:16 36.6 55 24 135/63 94 Room Air Physical Exam: nasogastric drainage (0), urine output (525) Abdomen: soft, + distended (mild) Incision(s): clean, dry (dressing) Laboratory Results: Results Past 24 Hours Test 10/04/16 20:45 10/04/16 23:05 10/05/16 06:20 Range/Units White Blood Count 15.46 4.8-10.8 K/uL Red Blood Count 5.05 4.2-5.4 M/uL Hemoglobin 14.2 12.0-16.0 g/dL Hematocrit 44.0 37-47 % Mean Corpuscular Volume 87.1 80-100 fL Mean Corpuscular Hemoglobin 28.1 25-34 pg Mean Corpuscular Hemoglobin Concent 32.3 32-36 g/dl Platelet Count 298 130-400 K/uL Mean Platelet Volume 12.0 7.4-10.4 fL Neutrophils (%) (Auto) 55.8 % Lymphocytes (%) (Auto) 33.8 % Monocytes (%) (Auto) 7.0 % Eosinophils (%) (Auto) 1.6 % Basophils (%) (Auto) 1.5 % Neutrophils # (Auto) 8.62 1.4-6.5 K/uL Lymphocytes # (Auto) 5.23 1.2-3.4 K/uL Monocytes # (Auto) 1.08 0.11-0.59 K/uL Eosinophils # (Auto) 0.25 0-0.5 K/uL Basophils # (Auto) 0.23 0-0.2 K/uL RDW Standard Deviation 50.6 36.4-46.3 fL RDW Coefficient of Variation 15.9 11.5-14.5 % Immature Granulocyte % (Auto) 0.3 % Immature Granulocyte # (Auto) 0.05 0.00-0.02 K/uL Erythrocyte Sedimentation Rate 10 0-21 mm/hr Sodium Level 143 136-145 mmol/L Potassium Level 3.5 3.5-5.1 mmol/L Chloride Level 106 98-107 mmol/L Carbon Dioxide Level 30 21-32 mmol/L Anion Gap 7.0 3-11 mmol/L Blood Urea Nitrogen 16 7-18 mg/dl Creatinine 0.99 0.60-1.20 mg/dl Est Creatinine Clear Calc Drug Dose 52.9 ml/min Estimated GFR () 74.4 Estimated GFR (Non- 64.2 BUN/Creatinine Ratio 16.0 10-20 Random Glucose 100 70-99 mg/dl Calcium Level 9.1 8.5-10.1 mg/dl Total Bilirubin 0.3 0.2-1 mg/dl Aspartate Amino Transf (AST/SGOT) 24 15-37 U/L Alanine Aminotransferase (ALT/SGPT) 25 12-78 U/L Alkaline Phosphatase 70 45-117 U/L C-Reactive Protein < 0.29 0-0.29 mg/dl Total Protein 7.2 6.4-8.2 gm/dl Albumin 3.6 3.4-5.0 gm/dl Globulin 3.6 2.5-4.0 gm/dl Albumin/Globulin Ratio 1.0 0.9-2 Lipase 164 73-393 U/L Urine Color YELLOW Urine Appearance CLEAR CLEAR Urine pH 7.0 4.5-7.5 Urine Specific [place] > 1.045 1.000-1.030 Urine Protein NEG NEG Urine Glucose (UA) NEG NEG Urine Ketones NEG NEG Urine Occult Blood NEG NEG Urine Nitrite NEG NEG Urine Bilirubin NEG NEG Urine Urobilinogen NEG NEG Urine Leukocyte Esterase NEG NEG Urine Opiates Screen POS NEG Urine Methadone, Qualitative NEG NEG Urine Barbiturates NEG NEG Urine Phencyclidine (PCP) Level NEG NEG Ur Amphetamine/Methamphetamine NEG NEG MDMA (Ecstasy) Screen NEG NEG Urine Benzodiazepines Screen NEG NEG Urine Cocaine Metabolite NEG NEG Urine Marijuana (THC) NEG NEG Prothrombin Time 10.2 9.0-12.0 SECONDS Prothromb Time International Ratio 1.0 0.9-1.1 Assessment & Plan s/p ex lap, lysis adhesive band, partial SB rsxn stable post op continue NGT, paez for now
[2016-10-05] MEDS: CEFAZOLIN IV 1,000 MG in DEXTROSE 5% 50ML 50 ML IV SCH ×3 (08:59→23:57)
[2016-10-05] MEDS: ENOXAPARIN 40 MG/0.4 ML SYR SQ SCH (09:00)
--- NOTE | 2016-10-05 09:47 | Anesthesiology Progress Note ---
Anesthesia Post Op Note Date & Time Oct 05, 2016 at 09:45 Vital Signs Pain Intensity: 5.0 Vital Signs Past 12 Hours Date Time Temp Pulse Resp B/P (MAP) Pulse Ox O2 Delivery O2 Flow Rate FiO2 10/05/16 07:07 36.3 64 14 118/70 (86) 96 Nasal Cannula 2.0 10/05/16 06:50 36.5 64 14 120/74 (89) 97 Nasal Cannula 2.0 10/05/16 05:38 36.8 67 14 125/72 (89) 96 Nasal Cannula 2.0 10/05/16 04:45 36.6 79 16 128/76 (93) 95 Nasal Cannula 2.0 10/05/16 04:20 36.3 76 14 139/90 92 Nasal Cannula 2.0 10/05/16 04:15 36.4 61 14 114/72 (86) 95 Room Air 10/05/16 04:00 Nasal Cannula 2.0 10/05/16 03:45 36.3 76 16 139/90 (106) 93 Nasal Cannula 2.0 10/05/16 03:30 62 14 109/64 96 Nasal Cannula 2 10/05/16 03:20 64 14 108/69 95 Nasal Cannula 2 10/05/16 03:10 74 22 137/67 95 Nasal Cannula 2 10/05/16 03:00 76 17 142/73 95 Nasal Cannula 2 10/05/16 02:50 65 17 126/62 95 Nasal Cannula 2 10/05/16 02:40 65 17 146/73 94 Nasal Cannula 2 10/05/16 02:30 36.3 61 19 149/83 93 Nasal Cannula 2 10/05/16 02:20 64 16 161/82 93 Nasal Cannula 2 10/05/16 02:10 82 24 170/75 97 Mask 5 10/05/16 02:01 36.3 71 16 149/80 100 Mask 10 10/05/16 00:10 64 18 151/64 100 10/04/16 23:14 58 16 146/70 96 Room Air 10/04/16 22:02 49 16 127/58 99 Nasal Cannula 3.0 Notes Mental Status: alert / awake / arousable, participated in evaluation Pt Amnestic to Procedure: Yes Nausea / Vomiting: adequately controlled Pain: adequately controlled Airway Patency, RR, SpO2: stable & adequate BP & HR: stable & adequate Hydration State: stable & adequate Anesthetic Complications: no major complications apparent Pt had uneventful anesthetic course. Initially in PACU, she was quite drowsy ( though not much more than pre-op), so I gave 0.2 mg flumazenil. She then became much more awake and responsive. She had no pain or nausea.
[2016-10-05] MEDS ORDERED: OXYC-57 PO (10:09)
--- NOTE | 2016-10-05 10:13 | Discharge Instructions ---
Discharge Instructions Date of Service Oct 05, 2016. Admission Reason for Admission: Small Bowel Obstruction Discharge Discharge Diagnosis / Problem: laparotomy, small bowel resection for ischemia Discharge Goals Goal(s): Improve nutritional status Activity Recommendations Activity Limitations: as noted below Lifting Limitations: no more than 10 pounds Shower/Bathe: no limitations Driving or Machine Use: resume 3 days after discharge . Instructions / Follow-Up Instructions / Follow-Up Dr. Yang within 1 week, call [phone] to schedule oir with any questions, [address] Current Hospital Diet Patient's current hospital diet: Discharge Diet Recommended Diet: Regular Diet Procedures Procedures Performed: Exploratory Laparotomy, Release of Small Bowel Obstruction and Partial Small Bowel Resection Pending Studies Studies pending at discharge: no Medical Emergencies . Who to Call and When: Medical Emergencies: If at any time you feel your situation is an emergency, please call 911 immediately. . Non-Emergent Contact Non-Emergency issues call your: Surgeon Call Non-Emergent contact if: you have a fever, temperature is above 101.5, your pain is not controlled, wound has increased drainage, wound has increased redness, wound has increased pain, you have any medication questions . "Provider Documentation" section prepared by Carl Lima. . VTE Core Measure Inpt VTE Proph given/why not?: Enoxaparin (Lovenox)SQ, SCD's
--- NOTE | 2016-10-05 10:14 | Progress Note ---
Progress Note Date of Service Oct 05, 2016. Progress Note seen again with Dr. Yang operative findings discussed will d/c [place] paez start on clears
[2016-10-05] MEDS: ACETAMINOPHEN IV 1000MG/100ML IV PRN ×4 (11:35→23:58)
[2016-10-06] MEDS: MoRPHine SULFATE 2 MG/ML CARP IV PRN ×3 (03:19→16:08)
[2016-10-06] MEDS: SODIUM CHLORIDE 0.9% 1000ML 1,000 ML IV SCH (04:32)
[2016-10-06] MEDS: ACETAMINOPHEN IV 1000MG/100ML IV PRN (06:17)
[2016-10-06 07:01] VITALS: BP 133/67; PULSE 57; TEMP 36.6; O2SAT 92
[2016-10-06] MEDS: ENOXAPARIN 40 MG/0.4 ML SYR SQ SCH (07:47)
[2016-10-06 08:59] LABS: BASO % 0.2 %; BASO ABS # 0.02 K/uL (0-0.2); COMPLETE YES; EOS % 0.2 %; HEMATOCRIT 37.3 % (37-47); IG% 0.2 %; LYMPH % 24.2 %; LYMPH ABS # 2.81 K/uL (1.2-3.4); MEAN CELL VOLUME 87.4 fL (80-100); MEAN CORPUSCULAR HEMOGLOBIN 27.6 pg (25-34); MEAN CORPUSCULAR HGB CONC 31.6 g/dl (32-36); MONO % 5.3 %; NEUT % 69.9 %; PLATELET COUNT 214 K/uL (130-400); RED BLOOD COUNT 4.27 M/uL (4.2-5.4)
[2016-10-06 09:37] LABS: CALCIUM 8.1 mg/dl (8.5-10.1); CREATININE 0.72 mg/dl (0.60-1.20)
--- NOTE | 2016-10-06 12:24 | Surgery Progress Note ---
Surgery Progress Note Date of Service Oct 06, 2016. Subjective Post OP Day: 1 + feeling well F/U S/P exp lap, lysis of adhesion and partial small bowel resection, pt is doing fine, good control abdominal pain, no nausea, no vomiting, Objective Vital Signs: Date Time Temp Pulse Resp B/P (MAP) Pulse Ox O2 Delivery O2 Flow Rate FiO2 10/06/16 07:22 Room Air 10/06/16 07:01 36.6 57 19 133/67 (89) 92 Room Air 10/05/16 23:53 Room Air 10/05/16 22:47 36.6 58 14 117/68 (84) 93 Room Air 10/05/16 16:30 Room Air 10/05/16 15:02 36.6 63 18 110/67 (81) 92 Room Air 10/05/16 12:40 36.6 76 16 111/69 (83) 93 Room Air General Appearance: WD/WN, no apparent distress Head: normocephalic Neck: no adenopathy, no JVD Respiratory/Chest: chest non-tender, lungs clear Cardiovascular: regular rate, rhythm, no edema, no gallop, no JVD Abdomen: normal bowel sounds, non distended, soft, + tenderness Incision(s): clean, dry, intact Extremities: normal range of motion, non-tender, normal inspection Laboratory Results: Results Past 24 Hours Test 10/06/16 08:53 Range/Units White Blood Count 11.60 4.8-10.8 K/uL Red Blood Count 4.27 4.2-5.4 M/uL Hemoglobin 11.8 12.0-16.0 g/dL Hematocrit 37.3 37-47 % Mean Corpuscular Volume 87.4 80-100 fL Mean Corpuscular Hemoglobin 27.6 25-34 pg Mean Corpuscular Hemoglobin Concent 31.6 32-36 g/dl Platelet Count 214 130-400 K/uL Mean Platelet Volume 11.0 7.4-10.4 fL Neutrophils (%) (Auto) 69.9 % Lymphocytes (%) (Auto) 24.2 % Monocytes (%) (Auto) 5.3 % Eosinophils (%) (Auto) 0.2 % Basophils (%) (Auto) 0.2 % Neutrophils # (Auto) 8.12 1.4-6.5 K/uL Lymphocytes # (Auto) 2.81 1.2-3.4 K/uL Monocytes # (Auto) 0.61 0.11-0.59 K/uL Eosinophils # (Auto) 0.02 0-0.5 K/uL Basophils # (Auto) 0.02 0-0.2 K/uL RDW Standard Deviation 52.0 36.4-46.3 fL RDW Coefficient of Variation 16.2 11.5-14.5 % Immature Granulocyte % (Auto) 0.2 % Immature Granulocyte # (Auto) 0.02 0.00-0.02 K/uL Sodium Level 142 136-145 mmol/L Potassium Level 4.0 3.5-5.1 mmol/L Chloride Level 108 98-107 mmol/L Carbon Dioxide Level 28 21-32 mmol/L Anion Gap 6.0 3-11 mmol/L Blood Urea Nitrogen 10 7-18 mg/dl Creatinine 0.72 0.60-1.20 mg/dl Est Creatinine Clear Calc Drug Dose 73.0 ml/min Estimated GFR () 109.3 Estimated GFR (Non- 94.3 BUN/Creatinine Ratio 14.0 10-20 Random Glucose 81 70-99 mg/dl Calcium Level 8.1 8.5-10.1 mg/dl Assessment & Plan F/U S/P exp lap, lysis of adhesion and partial small bowel resection, pt is doing fine, continue treatment, change IV fluid to D5 + NS + 20 MEQ KCL/1000ml. iv at 100ml/h, will F/U
[2016-10-06] MEDS: D5NSS + 20MEQ KCL 1,000 ML IV SCH ×2 (13:19→22:57)
[2016-10-06] MEDS ORDERED: NURSING VERBAL MED ORDER ONE (13:30)
[2016-10-06] MEDS: OXYCODONE/ACETAMINOPHEN 5-325 TAB PO PRN (14:42)
[2016-10-06 14:52] VITALS: BP 173/80; PULSE 58; TEMP 36.6; O2SAT 94
[2016-10-06 22:42] VITALS: BP 151/72; PULSE 58; TEMP 36.6; O2SAT 94
[2016-10-07 06:58] VITALS: BP 153/77; PULSE 54; TEMP 36.7; O2SAT 93
[2016-10-07 07:15] LABS: BASO % 0.7 %; BASO ABS # 0.07 K/uL (0-0.2); COMPLETE YES; EOS % 1.1 %; HEMATOCRIT 39.5 % (37-47); IG% 0.2 %; LYMPH % 24.5 %; LYMPH ABS # 2.38 K/uL (1.2-3.4); MEAN CELL VOLUME 88.4 fL (80-100); MEAN CORPUSCULAR HGB CONC 31.6 g/dl (32-36); MEAN PLATELET VOLUME 11.4 fL (7.4-10.4); MONO % 8.4 %; NEUT % 65.1 %; PLATELET COUNT 215 K/uL (130-400); RED BLOOD COUNT 4.47 M/uL (4.2-5.4); WHITE BLOOD COUNT 9.71 K/uL (4.8-10.8)
[2016-10-07 07:43] LABS: BUN/CREATININE RATIO 9.1 (10-20); CALCIUM 8.5 mg/dl (8.5-10.1); CREATININE 0.71 mg/dl (0.60-1.20); POTASSIUM 3.9 mmol/L (3.5-5.1)
[2016-10-07] MEDS: MoRPHine SULFATE 4 MG/ML 1 ML CARP\\VIAL IV PRN ×2 (07:44→13:11)
[2016-10-07 07:46] LABS: ALB/GLOB RATIO 0.9 (0.9-2)
[2016-10-07 07:50] VITALS: O2SAT 93
[2016-10-07] MEDS: D5NSS + 20MEQ KCL 1,000 ML IV SCH ×2 (09:57→18:51)
[2016-10-07] MEDS: ENOXAPARIN 40 MG/0.4 ML SYR SQ SCH (09:58)
[2016-10-07] MEDS: ONDANSETRON INJ 2 MG/ML 2 ML VIAL IV PRN (13:11)
--- NOTE | 2016-10-07 13:35 | Surgery Progress Note ---
Surgery Progress Note Date of Service Oct 07, 2016. Subjective Post OP Day: 2 + feeling well pt is stable, but not pass flatus yet, pt denies nausea, no vomiting, Objective Vital Signs: Date Time Temp Pulse Resp B/P (MAP) Pulse Ox O2 Delivery O2 Flow Rate FiO2 10/07/16 07:50 93 Room Air 10/07/16 06:58 36.7 54 17 153/77 (102) 93 Room Air 10/06/16 23:45 Room Air 10/06/16 22:42 36.6 58 18 151/72 (98) 94 Room Air 10/06/16 15:55 Room Air 10/06/16 14:52 36.6 58 16 173/80 (111) 94 Room Air General Appearance: WD/WN Head: normocephalic Neck: supple, no JVD Respiratory/Chest: chest non-tender, lungs clear Cardiovascular: regular rate, rhythm, no edema, no gallop Abdomen: normal bowel sounds, + distended, + tenderness Incision(s): clean, dry, intact Extremities: normal range of motion, non-tender, normal inspection Laboratory Results: Results Past 24 Hours Test 10/07/16 06:35 Range/Units White Blood Count 9.71 4.8-10.8 K/uL Red Blood Count 4.47 4.2-5.4 M/uL Hemoglobin 12.5 12.0-16.0 g/dL Hematocrit 39.5 37-47 % Mean Corpuscular Volume 88.4 80-100 fL Mean Corpuscular Hemoglobin 28.0 25-34 pg Mean Corpuscular Hemoglobin Concent 31.6 32-36 g/dl Platelet Count 215 130-400 K/uL Mean Platelet Volume 11.4 7.4-10.4 fL Neutrophils (%) (Auto) 65.1 % Lymphocytes (%) (Auto) 24.5 % Monocytes (%) (Auto) 8.4 % Eosinophils (%) (Auto) 1.1 % Basophils (%) (Auto) 0.7 % Neutrophils # (Auto) 6.31 1.4-6.5 K/uL Lymphocytes # (Auto) 2.38 1.2-3.4 K/uL Monocytes # (Auto) 0.82 0.11-0.59 K/uL Eosinophils # (Auto) 0.11 0-0.5 K/uL Basophils # (Auto) 0.07 0-0.2 K/uL RDW Standard Deviation 51.8 36.4-46.3 fL RDW Coefficient of Variation 16.1 11.5-14.5 % Immature Granulocyte % (Auto) 0.2 % Immature Granulocyte # (Auto) 0.02 0.00-0.02 K/uL Sodium Level 144 136-145 mmol/L Potassium Level 3.9 3.5-5.1 mmol/L Chloride Level 109 98-107 mmol/L Carbon Dioxide Level 30 21-32 mmol/L Anion Gap 5.0 3-11 mmol/L Blood Urea Nitrogen 6 7-18 mg/dl Creatinine 0.71 0.60-1.20 mg/dl Est Creatinine Clear Calc Drug Dose 74.0 ml/min Estimated GFR () 111.1 Estimated GFR (Non- 95.9 BUN/Creatinine Ratio 9.1 10-20 Random Glucose 86 70-99 mg/dl Calcium Level 8.5 8.5-10.1 mg/dl Total Bilirubin 0.4 0.2-1 mg/dl Aspartate Amino Transf (AST/SGOT) 23 15-37 U/L Alanine Aminotransferase (ALT/SGPT) 19 12-78 U/L Alkaline Phosphatase 53 45-117 U/L Total Protein 6.1 6.4-8.2 gm/dl Albumin 2.9 3.4-5.0 gm/dl Globulin 3.2 2.5-4.0 gm/dl Albumin/Globulin Ratio 0.9 0.9-2 Assessment & Plan F/U S/P exp lap, lysis of adhesion and partial small bowel resection, pt is doing fine, continue treatment, change IV fluid to D5 + NS + 20 MEQ KCL/1000ml. iv at 100ml/h, will F/U 10/07/2016 pt is still has not passed flatus yet, npo OOB will F/U F/U S/P exp lap, lysis of adhesion and partial small bowel resection, pt is doing fine, continue treatment, change IV fluid to D5 + NS + 20 MEQ KCL/1000ml. iv at 100ml/h, will F/U
[2016-10-07] MEDS: OXYCODONE/ACETAMINOPHEN 5-325 TAB PO PRN (14:32)
[2016-10-07 15:15] VITALS: BP 143/73; PULSE 59; TEMP 36.9; O2SAT 93
[2016-10-07 22:54] VITALS: BP 145/71; PULSE 59; TEMP 36.8; O2SAT 93
[2016-10-08] MEDS: MoRPHine SULFATE 2 MG/ML CARP IV PRN (01:25)
[2016-10-08] MEDS: ONDANSETRON INJ 2 MG/ML 2 ML VIAL IV PRN ×2 (01:25→11:52)
[2016-10-08] MEDS: D5NSS + 20MEQ KCL 1,000 ML IV SCH ×2 (04:31→14:18)
[2016-10-08 07:19] VITALS: BP 141/73; PULSE 58; TEMP 36.7; O2SAT 94
[2016-10-08 07:49] LABS: CREATININE 0.73 mg/dl (0.60-1.20)
[2016-10-08] MEDS: ENOXAPARIN 40 MG/0.4 ML SYR SQ SCH (08:03)
--- NOTE | 2016-10-08 09:36 | Surgery Progress Note ---
Surgery Progress Note Date of Service Oct 08, 2016. Subjective Post OP Day: 4 + feeling well +flatus...no bm yet. "hungry".... pain controlled. Objective Vital Signs: Date Time Temp Pulse Resp B/P (MAP) Pulse Ox O2 Delivery O2 Flow Rate FiO2 10/08/16 07:40 Room Air 10/08/16 07:19 36.7 58 18 141/73 (95) 94 Room Air 10/08/16 00:00 Room Air 10/07/16 22:54 36.8 59 18 145/71 (95) 93 Room Air 10/07/16 15:55 Room Air 10/07/16 15:15 36.9 59 16 143/73 (96) 93 Room Air General Appearance: no apparent distress Head: atraumatic Abdomen: non distended, soft Incision(s): clean, dry, intact, no erythema Laboratory Results: Results Past 24 Hours Test 10/08/16 06:48 Range/Units Creatinine 0.73 0.60-1.20 mg/dl Est Creatinine Clear Calc Drug Dose 72.0 ml/min Estimated GFR () 107.5 Estimated GFR (Non- 92.7 Assessment & Plan doing well wound looks good. will restart clear liquid diet awaiting bowel function no acute issues
[2016-10-08 11:46] LABS: COD UR NEGATIVE NG/ML (CUTOFF=50); HYDROCOD UR NEGATIVE NG/ML (CUTOFF=50); HYDROMOR UR 545 NG/ML (CUTOFF=50); MORPHINE UR NEGATIVE NG/ML (CUTOFF=50); NORHYDROCODONE CONF UR NEGATIVE NG/ML (CUTOFF=50); OXYMORPH UR NEGATIVE NG/ML (CUTOFF=50)
[2016-10-08] MEDS: MoRPHine SULFATE 4 MG/ML 1 ML CARP\\VIAL IV PRN (11:50)
[2016-10-08 16:18] VITALS: BP 145/74; PULSE 54; TEMP 36.7; O2SAT 94
[2016-10-08 22:49] VITALS: BP 126/76; PULSE 54; TEMP 36.6; O2SAT 93
[2016-10-09] MEDS: D5NSS + 20MEQ KCL 1,000 ML IV SCH ×3 (00:39→20:41)
[2016-10-09] MEDS: MoRPHine SULFATE 2 MG/ML CARP IV PRN (05:05)
[2016-10-09] MEDS: ONDANSETRON INJ 2 MG/ML 2 ML VIAL IV PRN (05:11)
--- NOTE | 2016-10-09 06:58 | Surgery Progress Note ---
Surgery Progress Note Date of Service Oct 09, 2016. Subjective Post OP Day: 5 + flatus (increasing), + pain controlled, + nausea (from Percocet), No bowel movement Objective Vital Signs: Date Time Temp Pulse Resp B/P (MAP) Pulse Ox O2 Delivery O2 Flow Rate FiO2 10/08/16 22:49 36.6 54 16 126/76 (93) 93 Room Air 10/08/16 20:30 Room Air 10/08/16 16:18 36.7 54 18 145/74 (97) 94 Room Air 10/08/16 07:40 Room Air 10/08/16 07:19 36.7 58 18 141/73 (95) 94 Room Air Abdomen: soft, + distended (trace) Incision(s): clean, dry Assessment & Plan s/p ex lap, lysis adhesive band, partial SB rsxn improving, advance to full liquids ambulating on Lovenox
[2016-10-09 07:44] VITALS: BP 128/70; PULSE 56; TEMP 36.5; O2SAT 92
[2016-10-09] MEDS: ENOXAPARIN 40 MG/0.4 ML SYR SQ SCH (08:14)
[2016-10-09 22:55] VITALS: BP 132/71; PULSE 56; TEMP 36.5; O2SAT 96
[2016-10-09] MEDS: ACETAMINOPHEN IV 1000MG/100ML IV PRN (23:19)
[2016-10-10] MEDS: D5NSS + 20MEQ KCL 1,000 ML IV SCH (06:13)
--- NOTE | 2016-10-10 07:12 | Surgery Progress Note ---
Surgery Progress Note Date of Service Oct 10, 2016. Subjective Post OP Day: 6 + flatus, + pain controlled, + diet (full liquids), No bowel movement, No nausea Objective Vital Signs: Date Time Temp Pulse Resp B/P (MAP) Pulse Ox O2 Delivery O2 Flow Rate FiO2 10/09/16 23:20 Room Air 10/09/16 22:55 36.5 56 16 132/71 (91) 96 Room Air 10/09/16 07:44 36.5 56 18 128/70 (89) 92 Room Air 10/09/16 07:27 Room Air Abdomen: non tender, non distended, soft Incision(s): clean, dry, no erythema Assessment & Plan s/p ex lap, lysis adhesive band, partial SB rsxn advance to soft diet recheck later today ok to shower home when tolerating diet
[2016-10-10 07:50] VITALS: BP 129/81; PULSE 54; TEMP 36.6; O2SAT 95
[2016-10-10] MEDS ORDERED: NURSING VERBAL MED ORDER ONE ×2 (08:15→11:45)
[2016-10-10] MEDS: ENOXAPARIN 40 MG/0.4 ML SYR SQ SCH (08:29)
[2016-10-10] MEDS ORDERED: BISACODYL 10 MG SUPP PR STA (10:15)
[2016-10-10] MEDS ORDERED: ACETAMINOPHEN 500 MG TAB PO PRN (12:00)
[2016-10-10 12:03] VITALS: BP 129/81; PULSE 54; TEMP 36.6; O2SAT 95
--- NOTE | 2016-10-12 11:10 | DISCHARGE SUMMARY ---
PRIMARY DISCHARGE DIAGNOSIS: Small bowel obstruction and ischemia secondary to adhesive band. PROCEDURES PERFORMED: Exploratory laparotomy with release of small bowel obstruction, enterolysis and partial small bowel resection with primary anastomosis. HOSPITAL COURSE: The patient is a 56-year-old female who presented to the Emergency Department with severe abdominal pain that began after lunch. CT showed high grade transition point in the pelvis with twisting of the mesentery. She was taken to the operating room emergently overnight and did have 1 adhesive band and about 1 foot of ischemic bowel which was resected. The procedure was well tolerated. She was transferred to the surgical floor. She was doing well on postoperative day 1. NG and Rosales were removed. She was started slowly on clear liquids. By postoperative day 3, she had some bloating and discomfort, was made n.p.o. for the evening. By day 4, she was feeling better, was beginning to pay pass flatus. She was started back on clear liquids. By the next day, she had increasing flatus, was able to tolerate full liquids. She was increasing activity. Postoperative day 6 she began moving her bowels. She was able to tolerate a soft diet. She was stable for discharge. Her abdomen was flat. Incision was clean and dry. DISCHARGE INSTRUCTIONS: Discharge home. Follow up with Dr. Yang's office next week for removal of skin max. DISCHARGE MEDICATIONS: Percocet 5/325 1-2 tablets every 4 hours as needed and can continue her home Bentyl 10 mg p.o. q.i.d. for now although suspect that these symptoms she had been having over the last few weeks were manifestations of this adhesive band.
== END 2016-10-10 13:33 | disposition home or self-care (01) | DRG 335 ==
LOC: EDBD 21:09 → C.EDC 21:10 → C.MSN 10-05 01:58 → ENRESERV 10-05 04:05
PROVIDERS: ADMIT Surgery; ATTEND Surgery
PROC: 0DB80ZX Excision of Small Intestine, Open Approach, Diagnostic (ICD-10-PCS; principal; 2016-10-04)
PROC: 0DN80ZZ Release Small Intestine, Open Approach (ICD-10-PCS; principal; 2016-10-04)
DX: K56.5 Intestinal adhesions [bands] with obstruction (postinfection) (principal); K55.029 Acute infarction of small intestine, extent unspecified; K55.019 Acute (reversible) ischemia of small intestine, extent unspecified; F17.200 Nicotine dependence, unspecified, uncomplicated; Z87.19 Personal history of other diseases of the digestive system; Z51.81 Encounter for therapeutic drug level monitoring; Z79.899 Other long term (current) drug therapy